=== PATIENT | male | born 1965 | race Caucasian/White ===

== ENCOUNTER → 2020-07-10 16:15 | Outpatient (CLI) | payer OTHER, SELFPAY ==
--- NOTE | ~2020-07-10 | XR_ITS ---
EXAMINATION: XR foot LT min 3V DATE: 07/10/2020 17:07 INDICATION: Mass at the base of the left first toe TECHNIQUE: Dorsoplantar, lateral, and 2 oblique views of the left foot were obtained. COMPARISON: None. FINDINGS: There is advanced osteoarthritis of the first metatarsophalangeal joint. There is no fractu re. Bone alignment is normal. The soft tissues are unremarkable. IMPRESSION: 1. 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 Reviewed, dictated and finalized at location A.
== END ==
PROVIDERS: PCP Family Medicine Adolescent Medicine; Visit Provider Family Medicine Adolescent Medicine
DX: M19.072 Primary osteoarthritis, left ankle and foot (principal)
CPT/HCPCS: 73630

== ENCOUNTER 2021-02-19 15:27 | Emergency (ER) | payer OTHER, SELFPAY ==
[2021-02-19 15:35] VITALS: BP 142/88; PULSE 67; RESP 16; TEMP 36.3; O2SAT 99
--- NOTE | 2021-02-19 17:13 | ED.URI ---
HPI - URI/Sore Throat General Chief Complaint: Upper Respiratory Infection Stated Complaint: Cough Time Seen by Provider: 02/19/21 17:14 Source: patient, RN notes reviewed and old records reviewed Mode of arrival: ambulatory Limitations: no limitations History of Present Illness HPI Narrative: 55 year old male accompanied by presents to express care with complaints of 3 1/2 week duration of persistent cough, Patient states that he had a cold prior to start of cough and those symptoms have resolved but can't get rid of cough, has tried Mucinex and NyQuil with no improvement. Patient states that cough is worse at night and if he goes in and out of changing temperatures. Patient reports some clear nasal drainage at times but denies any feeling of sinus congestion or pressure. Patient has had COVID vaccination and Booster and also his flu shot MD elicited complaint: cough Related Data Allergies Allergy/AdvReac Type Severity Reaction Status Date / Time No Known Allergies Allergy Mild Verified 06/24/09 18:01 Review of Systems Review of Systems: CONSTITUTIONAL: Denies fever, chills, or sweats. EYES: Denies visual changes, redness, or discharge. ENT: positive for some rhinorrhea, no noted congestion, sore throat, or otalgia. CARDIOVASCULAR: Denies chest pain, palpitations, or edema. RESPIRATORY: Positive for harsh persistent cough denies any dyspnea. GASTROINTESTINAL: Denies abdominal pain, nausea, vomiting, or diarrhea. GENITOURINARY: Denies dysuria or hematuria. SKIN: Denies rash or itching. MUSCULOSKELETAL: Denies back pain, joint pain, or myalgia. NEUROLOGIC: Denies headache, numbness, or weakness. PSYCHIATRIC: Denies anxiety or depression. All systems reviewed & are unremarkable except as noted in HPI and below PMFSH Past Medical History Medical History (Updated 02/21/21 @ 16:21 by Renu Villanueva NP) Persistent cough Surgical History Surgical History (Updated 02/21/21 @ 16:21 by Renu Villanueva NP) History of fusion of cervical spine Family History Family History (Updated 02/21/21 @ 16:22 by Renu Villanueva NP) Other No significant family history Social History Social History (Updated 02/21/21 @ 16:22 by Renu Villanueva NP) Smoking status: Never smoker Alcohol intake: current Alcohol use details: occasional social Substance use: never Living arrangements: with family Gender identity (if verbalized by the patient): Male Comments At time of signature, agree with nursing past medical, surgical, social and family history. There is no relevant family history pertinent to the presenting complaint Exam Narrative: GENERAL: Well-appearing, well-nourished, and in no acute distress. HEAD: Normocephalic, atraumatic. EYES: PERRLA and EOMI. ENT: Nares red with clear rhinorrhea no epistaxis. Mucous membranes moist.TM's normal with good light reflex, throat pink with no lesions exudates or tonsil swelling, some post nasal drainage noted NECK: Supple.no lymphadenopathy CHEST: Clear to auscultation. No respiratory distress.cough harsh with SAO2 99% on room air, no tachypnea or accessory muscle use noted HEART: Regular rate and rhythm. No murmur heard. Normal peripheral pulses. ABDOMEN: Soft, nontender, nondistended, normal active bowel sounds. EXTREMITIES: Normal range of motion. No edema. SKIN: Warm, dry, no rash. NEURO: No focal deficits. Alert and oriented x3. Course Vital Signs Vital signs: Vital Signs Temperature 36.3 C L 02/19/21 15:35 Pulse Rate 67 02/19/21 15:35 Respiratory Rate 16 02/19/21 15:35 Blood Pressure 142/88 H 02/19/21 15:35 Pulse Oximetry 99 02/19/21 15:35 Temperature 36.3 C L 02/19/21 15:35 Pulse Rate 67 02/19/21 15:35 Respiratory Rate 16 02/19/21 15:35 Blood Pressure 142/88 H 02/19/21 15:35 Pulse Oximetry 99 02/19/21 15:35 MDM - URI/Sore Throat Differential Diagnosis Differential diagnosis: Likely upper respiratory infection, s
== END 2021-02-19 17:35 | disposition home or self-care (01) ==
PROVIDERS: Emergency Provider Registered Nurse; PCP Family Medicine Adolescent Medicine
DX: R05.9 Cough, unspecified (principal); J31.0 Chronic rhinitis; Z20.822 Contact with and (suspected) exposure to COVID-19
CPT/HCPCS: 87426; 99213; C9803; G0463

== ENCOUNTER 2022-03-18 01:58 | Day surgery (SDC) | payer OTHER, SELFPAY ==
[2022-03-07 13:40] VITALS: BMI 24.4
[2022-03-18 12:13] VITALS: BP 140/95; PULSE 56; RESP 18; TEMP 36.2; O2SAT 100
--- NOTE | 2022-03-18 12:21 | P.HP_ITS ---
History of Present Illness History of Present Illness Consent: Risks, benefits, and alternatives have been discussed and questions answered. Patient agrees to proceed with procedure. Chief complaint: neoplasm screening Narrative: Antonio Hernandez is a 56 year old male Presents for screening colonoscopy. Patient's current weight appetite and bowel movements are normal. Patient denies abdominal pain. He has had no bleeding. Family history is noncontributory. Review of Systems Review of Systems: Review of systems noncontributory. [facility] Past Medical History Medical History (Updated 03/18/22 @ 12:22 by Antonio Edge MD) Persistent cough Surgical History Surgical History (Updated 02/21/21 @ 16:21 by Renu Villanueva NP) History of fusion of cervical spine Family History Family History (Updated 02/21/21 @ 16:22 by Renu Villanueva NP) Other No significant family history Social History Social History (Updated 02/21/21 @ 16:22 by Renu Villanueva NP) Smoking status: Never smoker Alcohol intake: current Alcohol use details: occasional social Substance use: never Living arrangements: with family Gender identity (if verbalized by the patient): Male Spiritual care concerns: No Meds Home Medications and Allergies Home Medications Medication Instructions Recorded Confirmed Type No Home Medications 03/07/22 03/18/22 History Allergies Allergy/AdvReac Type Severity Reaction Status Date / Time No Known Allergies Allergy Mild Verified 03/18/22 12:11 Vital Signs Vital Signs - 24 hr 03/18/22 12:13 Temperature 97.1 F L Pulse Rate 56 L Respiratory Rate 18 Blood Pressure 140/95 H Pulse Oximetry 100 Oxygen Delivery Room Air Exam Narrative: Physical exam reveals patient to be alert. Vital signs stable. HEENT exam is unremarkable. Patient is anicteric. Lungs are clear to auscultation and percussion. Heart is without murmur or extra sounds. Abdomen bowel sounds are present soft nontender with no organomegaly. Digital external rectal exam is normal. Assessment and Plan Assessment and plan (1) Encounter for screening colonoscopy: Code(s): Z12.11 - Encounter for screening for malignant neoplasm of colon Status: Acute Assessment and Plan: Patient presents today for screening colonoscopy. He appears to be at average risk for colon polyps. Further recommendations may be given after endoscopy.
[2022-03-18] MEDS: LACTATED RINGERS 1,000 ML 150 ML IV CONT (12:23)
--- NOTE | 2022-03-18 12:27 | P.PNAN_ITS ---
Anes - Initial Pre Proc Eval Procedure: Operation Date: 03/18/22 13:30 Proposed Procedures p Screening Colonoscopy - Antonio Edge MD Date/Time: 03/18/22 12:27 Surgeon: Antonio Edge MD Pre Op Diagnosis: neoplasm screening Patient Data Age: 56 Gender: M Height: 1.75 m Weight: 76 kg Last Vital Signs Temp 97.1 F L 03/18/22 12:13 Pulse 56 L 03/18/22 12:13 Resp 18 03/18/22 12:13 BP 140/95 H 03/18/22 12:13 Pulse Ox 100 03/18/22 12:13 O2 Del Method Room Air 03/18/22 12:13 Allergies Allergy/AdvReac Type Severity Reaction Status Date / Time No Known Allergies Allergy Mild Verified 03/18/22 12:11 Home Medications Medication Instructions Recorded Confirmed Type No Home Medications 03/07/22 03/18/22 History Patient hx anesthesia problems: none Family hx anesthesia problems: none Results Review: All pre-operative results and documents have been reviewed as part of the pre- operative evaluation. [facility] Past Medical History Medical History (Updated 03/18/22 @ 12:22 by Antonio Edge MD) Persistent cough Surgical History Surgical History (Updated 02/21/21 @ 16:21 by Renu Villanueva NP) History of fusion of cervical spine Family History Family History (Updated 02/21/21 @ 16:22 by Renu Villanueva NP) Other No significant family history Social History Social History (Updated 02/21/21 @ 16:22 by Renu Villanueva NP) Smoking status: Never smoker Alcohol intake: current Alcohol use details: occasional social Substance use: never Living arrangements: with family Gender identity (if verbalized by the patient): Male Spiritual care concerns: No Anes - Eval Final PreProcedure Day of Procedure 03/18/22 12:27 Patient weight: normal Heart: regular rate and rhythm Lungs: clear to auscultation Airway: Mallampati scale class II Neurological: alert and oriented Last oral intake: >/= 8 hours ASA classification: I Emergent: no Anesthetic plan: proceed Anesthesia type and monitoring: general GIVS and standard monitoring Results Review: All pre-operative results and documents have been reviewed as part of the pre- operative evaluation. Informed Consent: The patient's anesthetic plan and its attendant risks and benefits were discussed with the patient/family/POA. Questions were solicited and answers provided to the satisfaction of the patient/family/POA.
[2022-03-18] MEDS: SIMETHICONE ORAL SUSPENSION 20 MG/0.3 ML 30 ML BOTTLE 0.6 ML IRRIGATION (12:59)
[2022-03-18 13:11] VITALS: BP 112/74; PULSE 57; RESP 16; O2SAT 100
[2022-03-18 13:21] VITALS: BP 108/73; PULSE 53; RESP 18; O2SAT 100
[2022-03-18 13:31] VITALS: BP 112/74; PULSE 50; RESP 17; O2SAT 100
== END 2022-03-18 13:42 | disposition home or self-care (01) ==
PROVIDERS: PCP Family Medicine Adolescent Medicine; Visit Provider Internal Medicine Gastroenterology
PROC: 0DJD8ZZ Inspection of Lower Intestinal Tract, Via Natural or Artificial Opening Endoscopic (ICD-10-PCS; CPT 45378; principal; 2022-03-18 13:30)
DX: Z12.11 Encounter for screening for malignant neoplasm of colon (principal); K57.30 Diverticulosis of large intestine without perforation or abscess without bleeding; K64.8 Other hemorrhoids
CPT/HCPCS: 45378; J2704; J7120

== ENCOUNTER → 2024-08-18 15:43 | Outpatient (CLI) | payer OTHER, SELFPAY ==
--- NOTE | ~2024-08-18 | XR_ITS ---
Right Shoulder Technique: AP and scapular Y views were obtained. Clinical History: Pain Findings: No fracture or dislocation is seen. Osseous alignment is anatomic. The glenohumeral and acr omioclavicular joint spaces are preserved. Soft tissues are unremarkable. Impression: Unremarkable right shoulder radiographs. Reviewed, dictated and finalized at [facility]. Impression: Unremarkable right shoulder radiographs.
== END ==
LOC: EXPCRAD 15:45
PROVIDERS: PCP Nurse Practitioner Family; Visit Provider Nurse Practitioner Family
DX: M25.511 Pain in right shoulder (principal)
CPT/HCPCS: 73030

== ENCOUNTER 2024-09-19 09:17 | Emergency (ER) | payer OTHER, SELFPAY ==
[2024-09-19 09:20] VITALS: BP 165/93; PULSE 58; RESP 14; TEMP 36.2; O2SAT 100
--- NOTE | 2024-09-19 09:22 | ED.URI ---
HPI - URI/Sore Throat General Chief Complaint: Upper Respiratory Infection Stated Complaint: cough for two weeks Time Seen by Provider: 09/19/24 09:22 Source: patient, RN notes reviewed and old records reviewed Mode of arrival: ambulatory Limitations: no limitations History of Present Illness HPI Narrative: 59-year-old male presents to the [facility] with a lingering cough for the last 2 weeks. States the 1st couple of days he had a cough, congestion. Reports fever the 1st day or to high of 100. Patient states the last couple of days he has been using Mucinex. Had been taking an allergy medication Denies any chest pain. Denies any significant shortness of breath. Denies any edema. Onset (ago): week(s) (2) Treatments prior to arrival: cold medicine Related Data Home Medications ?Medication ?Instructions ?Recorded ?Confirmed ?Last Taken ?Type glucosamine 750 [id number] 1 tablet PO BID 01/13/24 08/18/24 Unknown History no1 644 mg-C 30 mg-terri 1 mg tablet (Osteo Bi-Flex Triple Strength) multivitamin 1 tablet PO DAILY 08/18/24 08/18/24 Unknown History Allergies Allergy/AdvReac Type Severity Reaction Status Date / Time No Known Allergies Allergy Mild Verified 09/19/24 09:20 Review of Systems Review of Systems: All systems reviewed & are unremarkable except as noted in HPI and below Constitutional: Constitutional: Reports no additional constitutional complaints ENT: Reports system reviewed and no additional complaints, except as documented Cardiovascular: Cardiovascular: Reports no additional cardiovascular complaints, Denies chest pain and Denies dyspnea Respiratory: Respiratory: Reports as per HPI, Denies chest congestion, Reports cough and Denies dyspnea Musculoskeletal: Musculoskeletal: Reports no additional musculoskeletal complaints Integumentary/Breasts: Skin/Breast: Reports system reviewed and no additional complaints, except as docu PMFSH Past Medical History Medical History Persistent cough Surgical History Surgical History History of fusion of cervical spine Family History Family History Other No significant family history Social History Social History (Reviewed 09/19/24 @ 09:38 by LEODAN Sharma Smoking status: Never smoker Alcohol intake: current Alcohol use details: occasional social Substance use: never Living arrangements: with family Gender identity (if verbalized by the patient): Male Spiritual care concerns: No Comments At the time of my signature, I reviewed and agree with the nursing past medical, surgical, social, and family history. There is no relevant family history pertinent to the patient complaint. Exam Const: General: cooperative, healthy appearing, comfortable, no acute distress, well developed, alert and well nourished Nutritional Appearance: well nourished Orientation/consciousness: patient oriented x3 Limitations: no limitations HENMT: Head: normal to inspection Ears: hearing grossly normal bilaterally, external ears normal, TM's normal bilaterally, EAC's normal, mastoids normal and no periauricular adenopathy Mouth: Yes Normal oral and palatal mucosa present, Yes lip normal, Yes tongue normal and Yes moist mucous membranes Throat: uvula midline, posterior oropharynx abnormal cobblestoning; no edema, no erythema, no exudates, no lacerations and no foreign body, postnasal drainage and no uvular edema Eyes: General: appearance normal, both eyes and all related structures Alignment and Position: alignment normal Neck: Neck: normal visual inspection, full ROM, no lymphadenopathy and no meningeal signs Chest: Chest palpation & inspection: normal inspection of the chest Resp: Effort & Inspection: normal respiratory effort and able to speak in complete sentences Auscultation: clear to auscultation bilaterally (Except right lower lobe, wheezing), no crackles, no rales, no rhonchi and wheezes expiratory wheezes and right lower Cardio: Rate: regular rate Skin: General skin exam: normal color and no rashes or lesions noted Neuro: General: patient oriented x3, gait normal, moves all extremities and no meningeal signs Cognition (Neuro): normal cognition Speech: normal speech Gait exam (Neuro): Normal gait present Extrem: General: normal to inspection, full ROM, capillary refill normal and normal gait Psych: Appearance: grossly normal and well kempt Mental Status: mental status grossly normal Speech and movement: Normal speech and movement present and Clear speech present Affect: normal affect Attitude: cooperative Course Course Level of Care: Express Care Visit Vital Signs Vital signs: Vital Signs Temperature 97.2 F L 09/19/24 09:20 Pulse Rate 58 L 09/19/24 09:20 Respiratory Rate 14 09/19/24 09:20 Blood Pressure 165/93 H 09/19/24 09:20 Pulse Oximetry 100 09/19/24 09:20 Temperature 97.2 F L 09/19/24 09:20 Pulse Rate 58 L 09/19/24 09:20 Respiratory Rate 14 09/19/24 09:20 Blood Pressure 165/93 H 09/19/24 09:20 Pulse Oximetry 100 09/19/24 09:20 Reviewed MDM - URI/Sore Throat MDM Narrative Medical decision making narrative: Patient sitting comfortably in exam room. Patient is nontoxic, vitals except blood pressure are stable. Blood pressure is mildly elevated, encouraging patient to follow-up with primary care provider for recheck Patient symptoms of URI, postnasal drainage x2 weeks Due to length of symptoms will cover with an antibiotic, steroids, inhaler. Patient appropriate for outpatient treatment with close follow-up Discharge instructions reviewed with patient, as well as provided in writing per nursing staff. The instructions also include specific and strict return/GO TO THE ER as well as f/u information. All questions have been answered, and the patient deny any further questions with discharge and discharge plan. Some parts of this dictation were generated by voice recognition software and may contain typographical and/or grammatical inaccuracies. Differential Diagnosis Differential diagnosis: Likely upper respiratory infection, otitis media, sinusitis, viral infection, bronchitis, influenza and pharyngitis Critical Care Time Critical Care Time Critical Care Time: No Discharge Plan Discharge Clinical Impression: Bronchitis, PND (post-nasal drip) Patient Disposition: Home Condition: Stable Instructions: Antibiotic Form, Acute Bronchitis (ED), Postnasal Drip (DC) Additional Instructions: Today your blood pressure was 165/93. Is recommended you follow-up with your primary care provider to have this rechecked It is very important to treat your symptoms. Drink plenty of water, Gatorade, Pedialyte, ice pops or Jell-O. -Alternate Tylenol and Motrin per package directions for fever or pain. You can alternate every 4 hours -Antihistamine medication such as Zyrtec/Claritin/[place] during the day can help improve symptoms. -doing daily nasal irrigations can help relieve pressure your sinuses. Things like a Neti pot -Use Flonase twice a day for 5 days then daily to help reduce the inflammation and dry up your sinuses. -You can also use Mucinex. Be sure to drink plenty of water with this medication at least 8 ounces with every dose and it is important to drink 8 to 10 glasses of water per day. Water is a natural decongestant -for coughing at night you can use the Delsym -Frequent hand washing or hand break and load operator is one of the best ways to prevent spread of infection. -Using a vaporizer or humidifier at night will also help thin secretions and help with coughing up phlegm. -Follow up with primary care provider in 7-10 days if condition is not improving - For new or worsening symptoms go directly to the nearest ER Patient Language: Honduran Prescriptions: New doxycycline monohydrate 100 mg tablet 100 mg PO BID Qty: 14 0RF albuterol sulfate 90 mcg/actuation HFA aerosol inhaler 2 puff inhalation QID PRN (Reason: shortness of breath or wheezing) Qty: 6.7 0RF (DME) Aerochamber MV Spacer See Rx Instructions .Route Qty: 1 0RF Rx Instructions: As directed prednisone 50 mg tablet 50 mg PO DAILY Qty: 5 0RF No Action Osteo Bi-Flex Triple Strength 750 mg-644 mg- 30 mg-1 mg tablet 1 tablet PO BID multivitamin Tablet 1 tablet PO DAILY Follow-up/Referrals: Carlos A Ga MD [Primary Care Provider[facility] Blood pressure check, 165/93) Time of Disposition: 09:34
== END 2024-09-19 09:41 | disposition home or self-care (01) ==
PROVIDERS: Emergency Provider Nurse Practitioner; PCP Family Medicine Adolescent Medicine
DX: J40 Bronchitis, not specified as acute or chronic (principal); R09.82 Postnasal drip
CPT/HCPCS: 99213; G0463

== ENCOUNTER 2024-10-21 15:30 | Outpatient (RCR) | payer OTHER, SELFPAY ==
--- NOTE | 2024-09-14 16:13 | OPREHPOC ---
Outpatient Therapy Plan of Care This is a Multidisciplinary Plan of Care that may contain components documented by all disciplines (PT, OT, and ST.) PT Problem 1 PT Problem #1 Knowledge Deficit PT Goal 1 Goal / Goal Update *independent with HEP Target Visit 6 PT Problem 2 PT Problem #2 Pain PT Goal 1 Goal / Goal Update * pt report pain R shoulder at 4/10 at worst Target Visit 6 PT Problem 3 PT Problem #3 Impaired Strength PT Goal 1 Goal / Goal Update 1* improve scapular-thoracic strength to 4+/5 2* pt maintain good posture of shoulders with exercises 3* pt not have pain with resisted shoulder IR 4* pt not have pain with resisted shoulder ER Target Visit 6
--- NOTE | 2024-09-14 16:13 | PTOPEVAL1 ---
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 The pain had improved, but has returned. Self assessment with Quick DASH rating of 36% limitation in activity level. He is R hand dominant and pain is increased with lifting out to the side. He continues to do all of his work and home tasks, with pain increase. With the evaluation: his shoulder ROM is WNL and no pain with active motion; pain is increased with resistance to shoulder IR and ER motions; there is not any tenderness to palpation over shoulder; posture with rounded shoulder position. Skilled PT services are indicated for treatment of R shoulder tendinitis/impingement syndrome: modalities to decrease pain, therapeutic exercises to increase thoracic-scapular strength to improve shoulder position/posture. Plan of Care Interventions Electrical Stimulation,Hot Pack/Cold Pack,Manual Therapy,Neuro Re-education,Patient/Caregiver Education,Therapeutic Activities,Therapeutic Exercise,Ultrasound,Other Other Interventions taping PT Services Indicated Yes Treatment Frequency and 1-2x/wk for 6 visits Duration These treatments will address the objective and functional deficits as defined above. The patient will be advanced safely and appropriately in order for the patient to progress towards his/her prior level of function. Additional exercises will be introduced and as well as a comprehensive home exercise program upon discharge, if needed, ?to ensure carryover of functional gains achieved in the clinic. This treatment plan has been reviewed and agreement upon by the patient.
--- NOTE | 2024-10-21 16:01 | OPREHPOC ---
Outpatient Therapy Plan of Care This is a Multidisciplinary Plan of Care that may contain components documented by all disciplines (PT, OT, and ST.) PT Problem 1 PT Problem #1 Knowledge Deficit PT Goal 1 Goal / Goal Update *independent with HEP 10-21-24 d/c goal met Target Visit 6 Progress Met PT Problem 2 PT Problem #2 Pain PT Goal 1 Goal / Goal Update * pt report pain R shoulder at 4/10 at worst 10-21-24 d/c goal met Target Visit 6 Progress Met PT Problem 3 PT Problem #3 Impaired Strength PT Goal 1 Goal / Goal Update 1* improve scapular-thoracic strength to 4+/5 2* pt maintain good posture of shoulders with exercises 3* pt not have pain with resisted shoulder IR 4* pt not have pain with resisted shoulder ER 10-21-24 d/c goals met except #4 Target Visit 6 Progress Partially Met
--- NOTE | 2024-10-21 16:01 | PTOPDC ---
Assessment and note entered by Unique Mccrary, PT Assessment Status Discharge ICD-10 Condition Codes (PT) Pain in right shoulder M25.511 Onset Feb 2024 Subjective Information shoulder is better, doing everything again; only slight pain; doing all the exercises at home and using the resistance band; sleeping is OK; ready to be done with therapy. Reported Pain Level Pain Score Self Report Additional Pain Score Comments pain range in the past week 0-1/10 with sleeping, doing ok, when change positions pain eases Assessment PT Clinical Summary Antonio has received 6 PT sessions for R shoulder pain. Today presents with: pain rating of 0-1/10; ROM is WNL:slight pain at end range of flexion in supine and with resisted ER motion; no issues with sleeping, occasionally has slight pain, but with position change, can return to sleep; 4+/5 strength of R shoulder; maintains good posture with exercises; education completed for HEP and posture. The goals were met, except has pain with resisted ER. Discharge PT. To continue with HEP and posture. Plan of Care PT Services Indicated No
== END 2024-10-21 16:35 | disposition home or self-care (01) ==
LOC: ANHPT 15:30
PROVIDERS: PCP Nurse Practitioner Family; Visit Provider Nurse Practitioner Family
DX: M25.511 Pain in right shoulder (principal)
CPT/HCPCS: 97110; 97112; 97140; 97161; 97530